=== PATIENT | female | born 1990 | race Caucasian/White ===

== ENCOUNTER → 2016-06-23 | Outpatient (CLI) | payer OTHER ==
[~2016-06-23] MED LIST: FERR50TA3 PO; PRENTAB26 PO
[2016-06-23 12:13] LABS: HEMATOCRIT 28.8 % (37-47)
[2016-06-23 12:44] LABS: URINE APPEARANCE CLEAR (CLEAR); URINE BILIRUBIN NEG (NEG); URINE COLOR YELLOW; URINE EPITHELIAL CELL AUTO >30 /lpf (0-5); URINE NITRITE NEG (NEG); URINE SPECIFIC GRAVITY 1.004 (1.000-1.030); UROBILINOGEN NEG (NEG)
[2016-06-23 12:51] LABS: MANUAL MICROSCOPIC REQUIRED? NO; REVIEW REQ? NO
[2016-06-23 13:05] LABS: GTGD 50 Grams
== END | disposition home or self-care (01) ==
LOC: C.LAB1850 10:30
PROVIDERS: ATTEND Obstetrics & Gynecology
DX: Z34.03 Encounter for supervision of normal first pregnancy, third trimester (principal)

== ENCOUNTER 2016-06-28 00:03 | Emergency (ER) | payer OTHER ==
[~2016-06-28] VITALS: Ht 172.7 cm; Wt 89.7 kg
[~2016-06-28 00:03] MED LIST changes: -FERR50TA3 PO
[2016-06-28 00:11] VITALS: TEMP 36.8; Ht 172.7 cm; Wt 89.7 kg
[2016-06-28] MEDS ORDERED: SODIUM CHLORIDE 0.9% 1000ML 1,000 ML IV STA ×2 (00:50)
[2016-06-28 00:51] LABS: HEMATOCRIT 28.4 % (37-47); MEAN CELL VOLUME 81.1 fL (80-100); MEAN CORPUSCULAR HEMOGLOBIN 27.4 pg (25-34); MEAN CORPUSCULAR HGB CONC 33.8 g/dl (32-36); MEAN PLATELET VOLUME 8.7 fL (7.4-10.4); PLATELET COUNT 205 K/uL (130-400); WHITE BLOOD COUNT 9.65 K/uL (4.8-10.8)
[2016-06-28 00:52] LABS: URINE APPEARANCE CLEAR (CLEAR); URINE BILIRUBIN NEG (NEG); URINE COLOR YELLOW; URINE NITRITE NEG (NEG); URINE PH 6.5 (4.5-7.5); URINE SPECIFIC GRAVITY 1.006 (1.000-1.030); UROBILINOGEN NEG (NEG); ZZUR CULT IF INDIC CLEAN CATCH NO
[2016-06-28 01:03] LABS: MANUAL MICROSCOPIC REQUIRED? NO; REVIEW REQ? NO
[2016-06-28 01:08] LABS: ALT/SGPT 25 U/L (12-78); AST/SGOT 14 U/L (15-37); BLOOD UREA NITROGEN 5 mg/dl (7-18); CALCIUM 8.5 mg/dl (8.5-10.1); CARBON DIOXIDE 22 mmol/L (21-32); CHLORIDE 105 mmol/L (98-107); CREATININE 0.43 mg/dl (0.60-1.20); GLUCOSE 83 mg/dl (70-99); POTASSIUM 3.6 mmol/L (3.5-5.1); SODIUM 139 mmol/L (136-145)
[2016-06-28 01:11] LABS: ALKALINE PHOSPHATASE 93 U/L (45-117)
[2016-06-28 01:19] LABS: BASO % 0.1 %; BASO ABS # 0.01 K/uL (0-0.2); COMPLETE YES; EOS % 0.3 %; IG% 0.3 %; LYMPH % 22.1 %; LYMPH ABS # 2.13 K/uL (1.2-3.4); MONO % 5.8 %; NEUT % 71.4 %
--- NOTE | 2016-06-28 02:01 | EMERGENCY ROOM VISIT NOTE ---
History First contact with patient: 00:07 Chief Complaint: FLANK PAIN Stated Complaint: RT SIDE FLANK/ABD PAIN - 29 WKS History of Present Illness The patient is a 26 year old female who presents to the Emergency Room with complaints of right-sided pain for the past 3 days described as aching, ranging in severity 5 out of 10. Nothing makes it better or worse. It does not radiate. Patient denies chest pain, dyspnea, fever, chills, nausea, vomiting, diarrhea, urinary symptoms, vaginal itching or discharge. Patient is 29 weeks . This is her third . She has no living children. She has had 2 spontaneous abortions. She follows with [facility]. She called them and was advised to go the ER. No tobacco, alcohol or drug use. No injury to the area. She woke up in the morning with pain there. She denies sleeping wrong. Patient states the pain is constant. No contractions. Review of Systems See HPI for pertinent positives & negatives. A total of 10 systems reviewed and were otherwise negative. Past Medical/Surgical History Medical Problems: (1) No pertinent past medical history Surgical Problems: (1) No pertinent past surgical history Family History No significant family history Social History Smoking Status: Never Smoker Smokeless Tobacco Use: No Alcohol Use: none Drug Use: none Marital Status: in relationship Housing Status: lives with significant other Occupation Status: employed Current/Historical Medications Scheduled Multivit/Min/Iron/Fol Ac/Pren ( Vitamin), 1 TAB PO DAILY Allergies Coded Allergies: No Known Allergies (Unverified , 06/28/16) Physical Exam Vital Signs Date Time Temp Pulse Resp B/P Pulse Ox O2 Delivery O2 Flow Rate FiO2 06/28/16 01:28 92 18 128/83 98 Room Air 06/28/16 00:11 36.8 89 16 139/83 97 Room Air Physical Exam VITALS: Vitals are noted on the nurse's note and reviewed by myself. Vital signs stable. GENERAL: Pleasant female, in no acute distress, nondiaphoretic, well-developed well-nourished. SKIN: The skin was without rashes, erythema, edema, or bruising. There is no tenting of the skin. Capillary reflex less than 2 seconds. HEAD: Normocephalic atraumatic. EARS: External auditory canals clear, tympanic membranes pearly wright without erythema or effusion bilaterally. EYES: Pupils equal round and reactive to light and accommodation. Conjunctivae without injection, sclerae without icterus. Extraocular movements intact. NOSE: Patent, turbinates without inflammation or discharge. MOUTH: Mucous membranes moist. Pharynx without erythema or exudate. Uvula midline. Airway patent. Tongue does not deviate. NECK: Supple without nuchal rigidity. No lymphadenopathy. No thyromegaly. Cervical spine is nontender. No JVD. HEART: Regular rate and rhythm without murmurs gallops or rubs. LUNGS: Clear to auscultation bilaterally without wheezes, rales or rhonchi. No dullness to percussion. No retractions or accessory muscle use. ABDOMEN: Positive bowel sounds x 4. Normal tympanic percussion. Soft, minimally tender to palpation right lateral abdomen who is 29 weeks , no CVA tenderness, without masses or organomegaly. Garcia sign negative. No guarding or rebound tenderness. MUSCULOSKELETAL: No muscle atrophy, erythema, or edema noted. NEURO: Patient was alert and oriented to person place and time. Normal sensation to light and sharp touch. No focal neurological deficits. Medical Decision & Procedures Laboratory Results 06/28/16 00:40 Red Blood Count 3.50, Mean Corpuscular Volume 81.1, Mean Corpuscular Hemoglobin 27.4, Mean Corpuscular Hemoglobin Concent 33.8, Mean Platelet Volume 8.7, Neutrophils (%) (Auto) 71.4, Lymphocytes (%) (Auto) 22.1, Monocytes (%) (Auto) 5.8, Eosinophils (%) (Auto) 0.3, Basophils (%) (Auto) 0.1, Neutrophils # (Auto) 6.89, Lymphocytes # (Auto) 2.13, Monocytes # (Auto) 0.56, Eosinophils # (Auto) 0.03, Basophils # (Auto) 0.01 06/28/16 00:40 Test 06/28/16 00:40 White Blood Count 9.65 K/uL (4.8-10.8) Red Blood Count 3.50 M/uL (4.2-5.4) Hemoglobin 9.6 g/dL (12.0-16.0) Hematocrit 28.4 % (37-47) Mean Corpuscular Volume 81.1 fL (80-100) Mean Corpuscular Hemoglobin 27.4 pg (25-34) Mean Corpuscular Hemoglobin Concent 33.8 g/dl (32-36) Platelet Count 205 K/uL (130-400) Mean Platelet Volume 8.7 fL (7.4-10.4) Neutrophils (%) (Auto) 71.4 % Lymphocytes (%) (Auto) 22.1 % Monocytes (%) (Auto) 5.8 % Eosinophils (%) (Auto) 0.3 % Basophils (%) (Auto) 0.1 % Neutrophils # (Auto) 6.89 K/uL (1.4-6.5) Lymphocytes # (Auto) 2.13 K/uL (1.2-3.4) Monocytes # (Auto) 0.56 K/uL (0.11-0.59) Eosinophils # (Auto) 0.03 K/uL (0-0.5) Basophils # (Auto) 0.01 K/uL (0-0.2) RDW Standard Deviation 35.9 fL (36.4-46.3) RDW Coefficient of Variation 12.2 % (11.5-14.5) Immature Granulocyte % (Auto) 0.3 % Immature Granulocyte # (Auto) 0.03 K/uL (0.00-0.02) Urine Color YELLOW Urine Appearance CLEAR (CLEAR) Urine pH 6.5 (4.5-7.5) Urine Specific [place] 1.006 (1.000-1.030) Urine Protein NEG (NEG) Urine Glucose (UA) NEG (NEG) Urine Ketones NEG (NEG) Urine Occult Blood NEG (NEG) Urine Nitrite NEG (NEG) Urine Bilirubin NEG (NEG) Urine Urobilinogen NEG (NEG) Urine Leukocyte Esterase NEG (NEG) Anion Gap 12.0 mmol/L (3-11) Est Creatinine Clear Calc Drug Dose 230.2 ml/min Estimated GFR () > 150.0 Estimated GFR (Non- 139.4 BUN/Creatinine Ratio 11.0 (10-20) Calcium Level 8.5 mg/dl (8.5-10.1) Total Bilirubin 0.4 mg/dl (0.2-1) Direct Bilirubin < 0.1 mg/dl (0-0.2) Aspartate Amino Transf (AST/SGOT) 14 U/L (15-37) Alanine Aminotransferase (ALT/SGPT) 25 U/L (12-78) Alkaline Phosphatase 93 U/L (45-117) Total Protein 6.8 gm/dl (6.4-8.2) Albumin 3.0 gm/dl (3.4-5.0) Lipase 118 U/L (73-393) Medications Administered Medications (Trade) Dose Ordered Sig/Primitivo Route Start Time Stop Time Status Last Admin Dose Admin Sodium Chloride (Nss 1000ml) 1,000 ml @ 999 mls/hr Q1H1M STAT IV 06/28/16 00:50 06/28/16 01:50 DC 06/28/16 01:23 999 MLS/HR ED Course Prior records/ancillary studies reviewed. Triage Nursing notes reviewed. The patient's history was concerning for abdominal pain. Differential diagnosis: Etiologies such as pain, muscle pain, complications of , labor, contractions, appendicitis, diverticulitis, PUD, biliary pathology, UTI, pancreatitis, obstruction, mesenteric ischemia, aortic pathology, infections, inflammatory bowel disease, renal colic, as well as others were entertained. Physical examination findings: As above. ER treatment provided: IV fluids On reassessment the patient felt better. Diagnostics interpreted by me: heart tones 168 The labs revealed no leukocytosis. No worrisome electrolyte abnormality. Negative urine stable H & H per chart review Imaging studies: US RUQ: Mild hydronephrosis of the right kidney. Urinary bladder decompressed, ureteral jets not visualized on this exam. No gallstones, wall thickening or pericholecystic fluid. No biliary dilatation. No free fluid. Negative sonographic Garcia sign. Liver and visualized portion of the pancreas within normal limits. Radiologist: Robbie Szymanski M.D. Consultation: A consultation was placed with the realty specialist, Dr. Noble. The case was discussed and diagnostics were reviewed. She recommends discharge and follow-up in clinic in a day or 2. Exam and history seem consistent with right-sided pain most likely related to . Patient did not have an acute abdomen on exam. She is tolerating fluids and food. No urine infection. No acute findings on ultrasound. She is advised to follow-up tomorrow or within 24 hours with OB or here in the ER sooner for increasing pain, fevers, drainage, vomiting, worsening signs or symptoms or as needed. By the evaluation outlined above emergent etiologies such as appendicitis, diverticulitis, PUD, biliary pathology, UTI, pancreatitis, obstruction, mesenteric ischemia, aortic pathology, infections, inflammatory bowel disease, renal colic, as well as others were deemed relatively unlikely. The pt informed about the findings as listed above. All questions were answered and pleased with the treatment. Return instructions were outlined and the patient was discharged in stable condition. Referral: The patient was referred back to their INSURANCE FOLLOW UP SPECIALIST within 24 hours for a recheck of the current condition. Case reviewed by attending. Medical Decision As above Impression Primary Impression: Right sided abdominal pain Departure Information Dispostion Home / Self-Care Condition GOOD Referrals Meño Masters M.D. (PCP) Patient Instructions My [facility] Additional Instructions Acetaminophen(Tylenol) may be used for fever or pain. Use 1000mg every six hours as needed. Avoid using more than 3000mg in a 24 hour period. Rest and drink plenty of fluids as tolerated. Slow sips of water or sports drinks are recommended instead of large amounts all at once. Continue current medications. Return to the ER immediately for worsening or persistent abdominal pain, contractions, vomiting, fevers, chest pains, difficulty breathing, black or bloody stools, worsening of your condition, or as needed. Follow up with your INSURANCE FOLLOW UP SPECIALIST in 24 hours for a recheck of your current condition.
[2016-06-28 02:09] VITALS: BP 121/86; PULSE 81; O2SAT 99
--- NOTE | 2016-06-28 06:51 | DIAGNOSTIC IMAGING REPORT ---
BILIARY ULTRASOUND CLINICAL HISTORY: Right-sided abdominal pain COMPARISON STUDY: No previous studies for comparison. FINDINGS: The pancreas appear normal as visualized. The liver appears normal. The gallbladder appears sonographically normal. There is no ductal dilatation. The common bile duct measured 3 mm. There is right-sided hydronephrosis. Images of the bladder revealed a decompressed bladder. There is a gravid uterus. IMPRESSION: 1. Ultrasonographically normal liver gallbladder and pancreas 2. Mild right-sided hydronephrosis Electronically signed by: Yassine Ramos M.D. 06/28/2016 6:49 AM Dictated Date/Time: 06/28/2016 6:47 AM
== END 2016-06-28 02:13 | disposition home or self-care (01) ==
LOC: C.EDB 00:05 → C.EDA 02:13
DX: O99.89 Other specified diseases and conditions complicating pregnancy, childbirth and the puerperium (principal); R10.9 Unspecified abdominal pain; Z3A.29 29 weeks gestation of pregnancy

== ENCOUNTER → 2016-07-06 | Outpatient (CLI) | payer OTHER ==
[~2016-07-06] MED LIST changes: +FERR50TA3 PO
== END | disposition home or self-care (01) ==
LOC: C.LAB1850 07:18
PROVIDERS: ATTEND Obstetrics & Gynecology
DX: O28.1 Abnormal biochemical finding on antenatal screening of mother (principal)

== ENCOUNTER → 2016-07-21 | Outpatient (CLI) | payer OTHER ==
[2016-07-21 18:00] LABS: HEMATOCRIT 30.4 % (37-47)
== END | disposition home or self-care (01) ==
LOC: C.LAB1850 17:19
PROVIDERS: ATTEND Obstetrics & Gynecology
DX: O99.019 Anemia complicating pregnancy, unspecified trimester (principal); Z3A.00 Weeks of gestation of pregnancy not specified; D64.9 Anemia, unspecified

== ENCOUNTER → 2016-08-10 | Outpatient (CLI) | payer OTHER ==
[2016-08-10 10:53] LABS: HEMATOCRIT 29.2 % (37-47)
== END | disposition home or self-care (01) ==
LOC: C.LAB1850 09:49
PROVIDERS: ATTEND Obstetrics & Gynecology
DX: O99.019 Anemia complicating pregnancy, unspecified trimester (principal)

== ENCOUNTER 2016-08-18 11:26 | Emergency (ER) | payer OTHER ==
[~2016-08-18] VITALS: Ht 172.7 cm; Wt 90.0 kg
[~2016-08-18 11:26] MED LIST changes: -FERR50TA3 PO
[2016-08-18 11:37] VITALS: TEMP 37.2; Ht 172.7 cm; Wt 90.0 kg
[2016-08-18] MEDS ORDERED: ACETAMINOPHEN 500 MG TAB PO STA (12:26)
--- NOTE | 2016-08-18 12:57 | DIAGNOSTIC IMAGING REPORT ---
RIGHT ANKLE MIN 3 VIEWS ROUTINE CLINICAL HISTORY: R ankle/foot pain Right trauma. Pain. COMPARISON: None. DISCUSSION: The bones and joint spaces appear intact. There is no evidence of fracture, dislocation or bony disease. There is no evidence for soft tissue swelling. IMPRESSION: Negative study. Electronically signed by: Meño Pettit M.D. 08/18/2016 12:56 PM Dictated Date/Time: 08/18/2016 12:56 PM
--- NOTE | 2016-08-18 12:58 | DIAGNOSTIC IMAGING REPORT ---
RIGHT FOOT MIN 3 VIEWS ROUTINE CLINICAL HISTORY: R ankle/foot pain Right trauma. Pain. COMPARISON: None. DISCUSSION: The bones and joint spaces appear intact. There is no evidence of fracture, dislocation or bony disease. There is no evidence for soft tissue swelling. IMPRESSION: Negative study. Electronically signed by: Meño Pettit M.D. 08/18/2016 12:57 PM Dictated Date/Time: 08/18/2016 12:56 PM
--- NOTE | 2016-08-18 13:14 | DIAGNOSTIC IMAGING REPORT ---
RIGHT RIBS UNILATERAL WITH PA CHEST CLINICAL HISTORY: R rib pain Right trauma. Pain. COMPARISON STUDY: None FINDINGS: Negative right ribs. Negative chest. IMPRESSION: Negative right ribs and chest Electronically signed by: Meño Pettit M.D. 08/18/2016 1:12 PM Dictated Date/Time: 08/18/2016 1:11 PM
[2016-08-18] MEDS ORDERED: FERR50TA3 PO (13:51)
[2016-08-18 14:46] VITALS: BP 129/83; PULSE 92; O2SAT 96
--- NOTE | 2016-08-18 19:17 | EMERGENCY ROOM VISIT NOTE ---
History First contact with patient: 12:19 Chief Complaint: FALL Stated Complaint: FELL DOWN STAIRS, 37 WKS PREG R ANKLE/FOOT,RIB SVETLANA History of Present Illness The patient is a 26 year old, 37 weeks gravid female, who presents to the Emergency Room with complaints of injuries after falling down approximately 8 steps at home. The patient reports that as she was starting to descend steps, her cat got in front of her and tripped her. She felt like she was going to fall face first. She immediately grabbed the banister and poor herself backward , landing on her right ribs. The patient also reports twisting her right ankle and foot. The patient then generally slid down the steps. She denies any head injury, back pain, chest pain or shortness of breath. She also denies any abdominal pain or vaginal bleeding. She rates her discomfort a 5 out of 10. Review of Systems 10 system review was performed and was negative except for pertinent positives and negatives as indicated in history of present illness Past Medical/Surgical History Medical Problems: (1) 37 weeks gestation of (2) Fall (3) No pertinent past medical history Surgical Problems: (1) No pertinent past surgical history Family History FH: cancer No significant family history Social History Smoking Status: Never Smoker Alcohol Use: none Drug Use: none Marital Status: in relationship Housing Status: lives with significant other Occupation Status: employed Current/Historical Medications Scheduled Ferrous Sulfate (Iron (Ferrous Sulfate)), 1 TAB PO DAILY Multivit/Min/Iron/Fol Ac/Pren ( Vitamin), 1 TAB PO DAILY Allergies Coded Allergies: No Known Allergies (Unverified , 08/18/16) Physical Exam Vital Signs Date Time Temp Pulse Resp B/P Pulse Ox O2 Delivery O2 Flow Rate FiO2 08/18/16 14:46 92 16 129/83 96 08/18/16 13:14 94 18 115/86 97 Room Air 08/18/16 11:37 37.2 91 18 129/88 99 Room Air Physical Exam CONSTITUTIONAL: Healthy and well nourished. Alert and oriented X 3 with positive affect. Patient does not appear in any acute distress. HEENT: Normocephalic, atraumatic. Pupils equal, round and reactive. No hemotympanum, epistaxis, subconjunctival hemorrhage, raccoon's eyes or Gallegos sign. OROPHARYNX: No dental trauma noted. NECK: Full active range of motion without discomfort. RESPIRATORY: Clear to auscultation bilaterally with no wheezing, crackles, rhonchi or stridor. CARDIOVASCULAR: Regular rate and rhythm with no murmurs, rubs or gallops. GASTROINTESTINAL: Bowel sounds present in all quadrants. She has no tenderness to palpation of the abdomen. Prominence is noted with history of intrauterine . MUSCULOSKELETAL: Examination shows generalized tenderness to palpation of the right lower ribs. No ecchymosis, subcutaneous emphysema or flail segment. Deep breathing worsens her discomfort. Examination of the right ankle shows diffuse edema without obvious deformity or skin wounds. Negative anterior draw. She has generalized tenderness to palpation over the dorsal midfoot, lateral and medial ankle. Pedal pulses are intact. Remaining musculoskeletal exam was performed and was normal. INTEGUMENTARY: No rash or other significant dermatologic conditions noted. NEUROLOGIC: Extremities are sensory intact. Medical Decision & Procedures ER Provider Diagnostic Interpretation: My interpretation of right rib x-rays with a PA chest does not show any obvious fractures or pneumothorax. My interpretation of right ankle and foot x-rays also does not show any acute fractures, ankle mortise asymmetry or dislocation. Radiologist reports were reviewed with concurrence. Medications Administered Medications (Trade) Dose Ordered Sig/Primitivo Route Start Time Stop Time Status Last Admin Dose Admin Acetaminophen (Tylenol Tab) 1,000 mg NOW STAT PO 08/18/16 12:26 08/18/16 12:29 DC 08/18/16 13:10 1,000 MG ED Course Patient history and physical exam were performed. Nurse's notes were reviewed. Vital signs were reviewed and were normal. The patient denied any abdominal pain. heart rate was 146. X-rays of the right ribs with PA chest were normal. X-rays of the right ankle and foot were also normal. The patient was administered Tylenol 1 g while in the emergency department for pain. The patient reports that she does have crutches at home from a previous injury. She was encouraged to intermittently apply ice to areas of discomfort. Range of motion exercises of the ankle to prevent stiffness. Tylenol as needed for pain. Return to the emergency department for any developing abdominal pain or vaginal bleeding. Otherwise, she was instructed to follow-up with her PCP for management of her injuries as needed. Follow-up with CHART COLLECTOR for any concerns. Patient was discharged and sent to the Labor and Delivery department for further monitoring. Medical Decision Impression Primary Impression: Contusion of rib on right side Additional Impressions: Right ankle sprain Right foot strain Fall down steps Third trimester Departure Information Dispostion Home / Self-Care Forms HOME CARE DOCUMENTATION FORM, IMPORTANT VISIT INFORMATION Patient Instructions My [facility] [place] [facility] Additional Instructions Intermittently apply ice to ribs, ankle and foot. Use your home crutches as needed to avoid limping. Perform range of motion exercises of the ankle to prevent stiffness. Tylenol 1000 mg every 6-8 hours as needed for pain. Return to the emergency department for any developing abdominal pain or vaginal bleeding. Problem Qualifiers Primary Impression: Contusion of rib on right side Encounter type: initial encounter Qualified Codes: S20.211A - Contusion of right front wall of thorax, initial encounter Additional Impressions: Right ankle sprain Encounter type: initial encounter Involved ligament of ankle: unspecified ligament Qualified Codes: S93.401A - Sprain of unspecified ligament of right ankle, initial encounter Right foot strain Encounter type: initial encounter Qualified Codes: S96.911A - Strain of unspecified muscle and tendon at ankle and foot level, right foot, initial encounter Fall down steps Encounter type: initial encounter Qualified Codes: W10.8XXA - Fall (on) ( from) other stairs and steps, initial encounter
== END 2016-08-18 14:47 | disposition home or self-care (01) ==
LOC: C.EDB 11:29 → C.EDC 14:47
DX: O9A.213 Injury, poisoning and certain other consequences of external causes complicating pregnancy, third trimester (principal); S20.211A Contusion of right front wall of thorax, initial encounter; S93.401A Sprain of unspecified ligament of right ankle, initial encounter; S93.601A Unspecified sprain of right foot, initial encounter; W10.8XXA Fall (on) (from) other stairs and steps, initial encounter; Y92.019 Unspecified place in single-family (private) house as the place of occurrence of the external cause; Z80.9 Family history of malignant neoplasm, unspecified

== ENCOUNTER 2016-08-18 14:56 | Outpatient (CLI) | payer OTHER ==
[~2016-08-18 14:56] MED LIST changes: +FERR50TA3 PO
== END 2016-08-18 15:35 | disposition home or self-care (01) ==
LOC: C.OPB 14:56 → C.LD 14:56 → C.OPB 15:35
PROVIDERS: ATTEND Obstetrics & Gynecology
DX: O99.89 Other specified diseases and conditions complicating pregnancy, childbirth and the puerperium (principal); W10.9XXA Fall (on) (from) unspecified stairs and steps, initial encounter; Z3A.37 37 weeks gestation of pregnancy

== ENCOUNTER → 2016-08-24 | Outpatient (CLI) | payer OTHER | END | disposition home or self-care (01) | LOC: C.LABSPEC 13:36 | PROVIDERS: ATTEND Obstetrics & Gynecology | DX: Z34.03 Encounter for supervision of normal first pregnancy, third trimester (principal) ==

== ENCOUNTER 2016-09-02 18:03 | Inpatient (IN) | payer OTHER ==
[~2016-09-02] VITALS: Ht 172.7 cm; Wt 95.0 kg
[2016-09-02] MEDS ORDERED: LACTATED RINGER'S 1000ML 1,000 ML IV PRN (18:37)
[2016-09-02 19:08] VITALS: Ht 172.7 cm; Wt 95.0 kg
[2016-09-02 19:26] LABS: HEMATOCRIT 31.5 % (37-47); MEAN CELL VOLUME 76.1 fL (80-100); MEAN CORPUSCULAR HEMOGLOBIN 23.4 pg (25-34); MEAN CORPUSCULAR HGB CONC 30.8 g/dl (32-36); MEAN PLATELET VOLUME 9.5 fL (7.4-10.4); PLATELET COUNT 246 K/uL (130-400); RED BLOOD COUNT 4.14 M/uL (4.2-5.4); WHITE BLOOD COUNT 12.43 K/uL (4.8-10.8)
[2016-09-02] MEDS: LACTATED RINGER'S 1000ML 1,000 ML IV SCH ×2 (20:23→23:38)
[2016-09-02] MEDS ORDERED: BUTORPHANOL TARTRATE 1 MG/ML VIAL ONE (20:27)
[2016-09-02] MEDS ORDERED: BUTORPHANOL TARTRATE 1 MG/ML VIAL IV PRN (20:30)
[2016-09-02] MEDS ORDERED: FENTANYL CITRATE INJ 50 MCG/1 ML 2 ML VIAL ONE (22:03)
[2016-09-02] MEDS ORDERED: BUPIVACAINE 0.25% 30 ML VIAL ONE (22:03)
[2016-09-02] MEDS ORDERED: EpHEDrine SULFATE INJ 50 MG/ML AMP ONE (22:03)
[2016-09-02] MEDS ORDERED: FENTANYL 2MCG/ML ROPIV 1.25MG/ML 100ML BAG EPI ONE (22:03)
[2016-09-02] MEDS ORDERED: NALOXONE HCL INJ 1 MG in SODIUM CHLORIDE 0.9% 1000ML 1,000 ML IV PRN (22:50)
[2016-09-02] MEDS ORDERED: LACTATED RINGER'S 1000ML 500 ML IV PRN (22:50)
[2016-09-02] MEDS ORDERED: ONDANSETRON INJ 2 MG/ML 2 ML VIAL IV PRN (23:00)
[2016-09-02] MEDS ORDERED: NALBUPHINE HCL INJ 10 MG/ML AMP IV PRN (23:00)
[2016-09-02] MEDS ORDERED: FENTANYL 2MCG/ML ROPIV 1.25MG/ML 100ML BAG EPI PRN (23:00)
[2016-09-02] MEDS ORDERED: EpHEDrine SULFATE INJ 50 MG/ML AMP IV PRN (23:00)
[2016-09-02] MEDS ORDERED: NALOXONE HCL INJ 0.4 MG/1 ML VIAL/CARP IV PRN (23:00)
[2016-09-02] MEDS ORDERED: DiphenhydrAMINE HCL 50 MG/ML VIAL IV PRN (23:00)
[2016-09-03] MEDS ORDERED: OXYTOCIN 30 UNITS/500ML NSS IV ONE (02:36)
[2016-09-03] MEDS ORDERED: OXYCODONE/ACETAMINOPHEN 5-325 TAB PO PRN (03:00)
[2016-09-03] MEDS ORDERED: OXYTOCIN 30 UNITS/500ML NSS IV PRN (03:00)
[2016-09-03] MEDS ORDERED: LANOLIN OINT EXT PRN ×2 (03:00)
[2016-09-03] MEDS ORDERED: ACETAMINOPHEN/CODEINE 300/30MG TAB PO PRN ×2 (03:00)
[2016-09-03] MEDS ORDERED: ACETAMINOPHEN 325 MG TAB PO PRN (03:00)
[2016-09-03] MEDS ORDERED: SUPERCREAM 0.870 % 15GM JAR EXT PRN (03:00)
[2016-09-03] MEDS ORDERED: HYDROCORTISONE ACETATE 25 MG SUPP PR PRN (03:00)
[2016-09-03] MEDS ORDERED: BENZOCAINE 20% AER SPR 82.5 GM CAN EXT PRN (03:00)
[2016-09-03] MEDS: IBUPROFEN 600 MG TAB PO PRN ×4 (03:31→17:21)
[2016-09-03 05:10] VITALS: BP 129/80; PULSE 85; TEMP 36.6
--- NOTE | 2016-09-03 07:16 | Progress Note ---
Subjective Sep 03, 2016. Subjective conversation w/ patient, physical exam, chart review Ambulation: ambulating normally Voiding: no voiding problems Diet Tolerance: Regular Diet Lochia: Moderate Objective Vital Signs Date Time Temp Pulse Resp B/P Pulse Ox O2 Delivery O2 Flow Rate FiO2 09/03/16 05:10 36.6 85 18 129/80 Room Air Physical Exam General Appearance: WELL-APPEARING Abdomen: non tender Fundus: Firm Extremities: no calf tenderness Laboratory Results Last 24 Hours Test 09/02/16 18:37 09/02/16 19:13 Amniotic Fluid Protein POS White Blood Count 12.43 K/uL Red Blood Count 4.14 M/uL Hemoglobin 9.7 g/dL Hematocrit 31.5 % Mean Corpuscular Volume 76.1 fL Mean Corpuscular Hemoglobin 23.4 pg Mean Corpuscular Hemoglobin Concent 30.8 g/dl RDW Standard Deviation 39.2 fL RDW Coefficient of Variation 13.9 % Platelet Count 246 K/uL Mean Platelet Volume 9.5 fL Assessment and Plan Problem List Medical Problems: (1) Contusion of rib on right side Status: Acute (2) Fall down steps Status: Acute (3) Knee pain Status: Acute (4) Right ankle sprain Status: Acute (5) Right foot strain Status: Acute (6) Right sided abdominal pain Status: Acute (7) Third trimester Status: Acute Post- Day#: 0 Continue Routine Care: ccc
[2016-09-03] MEDS: DOCUSATE SODIUM 100 MG CAP PO SCH ×2 (08:07→19:38)
[2016-09-03] MEDS: PRENATAL VITAMIN TAB PO SCH (08:07)
[2016-09-03 08:20] VITALS: BP 125/79; PULSE 86; TEMP 36.8
--- NOTE | 2016-09-03 12:07 | DELIVERY SUMMARY ---
DATE OF OPERATION: 09/02/2016 Nikole arrived on the evening of 09/02/2016 in active labor. She initially was 3-4 cm, progressed to 5 cm, requested epidural. heart rate was category 1. Membranes then ruptured spontaneously. The patient pushed for approximately 40 minutes and then delivered a baby over occiput anterior position. There was a loose nuchal cord that was passed over the head. Fluid was clear. Mouth and the nares were suctioned. Baby was delivered with gentle traction. No excessive force was used. Live vigorous infant, cord clamped and cut. Cord gases obtained. Cord blood obtained. Placenta removed with gentle traction, second degree tear repaired with 3-0 Vicryl. Sponge and instrument counts were correct and estimated blood loss was 215 mL. I attest to the content of the Intraoperative Record and any orders documented therein. Any exceptio ns are noted below.
[2016-09-03 12:30] VITALS: BP 116/77; PULSE 81; TEMP 36
[2016-09-03 15:10] VITALS: BP 119/82; PULSE 97; TEMP 36.6
[2016-09-03 19:45] VITALS: BP 125/89; PULSE 95; TEMP 36.9
[2016-09-04] MEDS: IBUPROFEN 600 MG TAB PO PRN ×3 (00:08→16:39)
[2016-09-04 00:10] VITALS: BP 125/92; PULSE 85; TEMP 36.5; O2SAT 99
[2016-09-04 07:29] LABS: HEMATOCRIT 28.4 % (37-47)
[2016-09-04 07:30] VITALS: BP 121/77; PULSE 82; TEMP 36.9
--- NOTE | 2016-09-04 07:48 | Progress Note ---
Subjective Sep 04, 2016. Subjective conversation w/ patient, physical exam Ambulation: ambulating normally Voiding: no voiding problems Diet Tolerance: Regular Diet Lochia: Small Feeding Type: Breast Feeding Pain: no pain issues. Objective Vital Signs Date Time Temp Pulse Resp B/P Pulse Ox O2 Delivery O2 Flow Rate FiO2 09/04/16 00:10 Room Air 09/04/16 00:10 36.5 85 18 125/92 99 Room Air 09/03/16 19:45 36.9 95 18 125/89 Room Air 09/03/16 15:10 36.6 97 18 119/82 Room Air 09/03/16 15:10 Room Air 09/03/16 12:30 36.0 81 18 116/77 Room Air 09/03/16 08:20 36.8 86 20 125/79 Room Air 09/03/16 08:20 Room Air Physical Exam General Appearance: WELL-APPEARING, NO APPARENT DISTRESS Respiratory/Chest: lungs clear Cardiovascular: regular rate, rhythm Abdomen: non tender, soft Fundus: Firm, Relation to Umbilicus (2 down) Extremities: non-tender Laboratory Results Last 24 Hours Test 09/04/16 06:31 Hemoglobin 8.5 g/dL Hematocrit 28.4 % Assessment and Plan Problem List Medical Problems: (1) Contusion of rib on right side Status: Acute (2) Fall down steps Status: Acute (3) Knee pain Status: Acute (4) Right ankle sprain Status: Acute (5) Right foot strain Status: Acute (6) Right sided abdominal pain Status: Acute (7) Third trimester Status: Acute Post- Day#: 1 Continue Routine Care: stable, routine care.
[2016-09-04] MEDS: DOCUSATE SODIUM 100 MG CAP PO SCH (08:25)
[2016-09-04] MEDS: PRENATAL VITAMIN TAB PO SCH (08:25)
--- NOTE | 2016-09-04 14:11 | Discharge Instructions ---
Discharge Instructions Date of Service Sep 04, 2016. Admission Reason for Admission: Check Labor Discharge Discharge Diagnosis / Problem: after delivery Discharge Goals Goal(s): Routine recovery after delivery Medications Continue Dispensed Medications: supercream, dermaplast, tucks, lansinoh Activity Recommendations Activity Limitations: as noted below . Instructions / Follow-Up Instructions / Follow-Up ACTIVITY RECOMMENDATIONS: * Gradual return to full activity over the next 2-3 weeks. * No lifting - nothing heavier than baby over the next 2-3 weeks. * Do not engage in vigorous exercise, sexual activity or sports until cleared by your physician. * Do not drive or operate any motorized equipment until cleared by your physician. * You may shower/bathe daily. MEDICATIONS: For discomfort or pain, you may use Acetaminophen (Tylenol), Ibuprofen (Advil), or Naproxen (Aleve) following the package directions. For constipation you may use Colace following the package directions. Take the iron as noted for next 6wks. BREAST CARE: If you are not breast feeding: * Wear a supportive bra 24 hours a day for one to two weeks. * Avoid stimulating your breasts and nipples as much as possible during the first few weeks after delivery. * When taking a shower, have the warm water hit your back, not breasts. * When your breasts feel full, apply ice packs. Usually three to four times a day helps ease the discomfort. * Take a mild pain medication (Tylenol / Motrin) when you are uncomfortable. If breast feeding: * Use breast milk to lubricate nipples. Lansinoh cream may be used for sore nipples. You do not need to remove cream prior to breast feeding. If using a different brand of cream, check the label for directions regarding removal of cream prior to nursing. * Wear a supportive bra. * If having problems with breasts or breast feeding, call a interventional sale consultant or your health care provider. EPISIOTOMY CARE: After delivery, if you have an episiotomy (stitches), the following steps will ease discomfort and aid healing. * For the first 24 hours after delivery, place ice packs next to your episiotomy to help reduce swelling. * After the first 24 hour-period, sitz baths, either portable or in the tub, are suggested. A shower with a shower arm sprayed over the episiotomy may be comforting. * [place] care should be done after each voiding and bowel movement. Squirt warm water from a plastic bottle over the perineum (region of the body between the anus and urinary opening) and pat dry. * Use Dermoplast to ease discomfort. Shake container. Trimble directly over the episiotomy. Place a Tucks on a clean sanitary pad next to your episiotomy. SPECIAL CARE INSTRUCTIONS: When you are discharged from the hospital, it is important for you to follow the instructions listed below: * During the first week at home, you should be able to care for yourself and your baby. In addition, the usual light household activities are encouraged. * Limit your activities to the way you feel. Do not try to clean the house or move furniture. Be sensible. * If you actively engage in sports and have done so up until the time of your delivery, you may resume these activities as soon as you feel able. This may take up to one month or even longer. Use good judgment. * Continue to take your vitamins for at least six weeks after the of your baby. * Your diet need not be limited unless you were on a special diet before your delivery. Breast-feeding mothers need around 2500 calories per day and at least 64-80 ounces of fluid per day (8 to 10 glasses). * You should eat foods from the four major food groups. Crash diets or fad diets are to be avoided. Eating lean meats, fresh fruits and vegetables, low-fat dairy products, high fiber foods and a regular exercise program, will help you get back to your pre- weight without putting your health at risk. * Constipation is sometimes a problem after delivery. Take a mild laxative as needed. If breast feeding, Milk of Magnesia is acceptable to use. You may use a suppository or Fleets enema if no episiotomy. * A daily shower or tub bath is suggested. Be sure to thoroughly and gently dry the perineum. * A bloody vaginal discharge will usually continue until around four weeks post . A small amount of bleeding may continue for as long as six weeks. Vaginal discharge changes from the bright red bleeding after delivery to pink then brownish and finally yellowish-pink before becoming white and disappearing. * Bleeding may increase with activity. Your first period may come in 4-8 weeks. If you are breast feeding, your period may be delayed even longer. * [place] (sex) can begin whenever both you and your partner feel comfortable and do not have any form of genital infection. It is recommended that you wait at least six weeks for internal and external healing to occur. If you have questions, please talk to your health care practitioner. A condom should be used to prevent infection and . * Foreplay, gentle intercourse and lubrication is very important the first several times to prevent pain. A water-based lubricant such as K-Y jelly or Astroglide may be used. * If you have RH negative blood and your baby is RH positive, you will receive RHOGAM by injection prior to discharge. The nurse will give you a card to keep with you that has the date and place that you received RHOGAM after delivery. * During your care, you had a Rubella screen done to check for the presence of rubella antibodies in your blood. If your test was negative, you will receive a Rubella vaccine prior to discharge. This vaccine may cause a fever, soreness at the injection site and flu-like symptoms. If these symptoms persist, notify your health care practitioner. is not advised for one month after a Rubella vaccine. * Verbalizes understanding of car seat law as reviewed with patient nursing. * Car Seat hand-out given and reviewed with patient by nursing. * Shaken baby information reviewed with patient by nursing. Call you doctor if: * Heavy bleeding (saturating several pads an hour) or passing clots the size of your fist. * A fever >101 degrees F (38.3 degrees C) on two occasions four hours apart and /or chills. * Unusual pain in the pelvic or vaginal areas. * "Baby Blues" lasting longer than two weeks. If you have any questions or concerns, call your health care practitioner at . FOLLOW UP VISIT: * Please call the office at to schedule a 6 week examination. It is important you keep this appointment. It is important for you to make arrangements for either yearly or twice yearly check-ups thereafter. Current Hospital Diet Patient's current hospital diet: Regular OB Diet Discharge Diet Recommended Diet: Regular Diet Pending Studies Studies pending at discharge: no Medical Emergencies . Who to Call and When: Medical Emergencies: If at any time you feel your situation is an emergency, please call 911 immediately. . Non-Emergent Contact Non-Emergency issues call your: Heater Planer Operator . . "Provider Documentation" section prepared by Marie Shepherd. VTE Core Measure Inpt VTE Proph given/why not?: Treatment not indicated
[2016-09-04 16:30] VITALS: BP 111/77; PULSE 92; TEMP 37.1
[2016-09-04 19:55] VITALS: BP_DIAS 77; PULSE 92; TEMP 37.1
[2016-09-04] MEDS ORDERED: BISACODYL 5 MG TABEC PO SCH (20:00)
[2016-09-05] MEDS ORDERED: BISACODYL 10 MG SUPP PR PRN (07:00)
== END 2016-09-04 20:00 | disposition home or self-care (01) | DRG 775 ==
LOC: C.OPB 18:03 → C.LD 18:03 → C.OPB 18:48 → C.OBG 09-03 05:22
PROVIDERS: ADMIT Obstetrics & Gynecology; ATTEND Obstetrics & Gynecology
PROC: 0KQM0ZZ Repair Perineum Muscle, Open Approach (ICD-10-PCS; principal; 2016-09-02)
PROC: 10E0XZZ Delivery of Products of Conception, External Approach (ICD-10-PCS; principal; 2016-09-02)
DX: O70.1 Second degree perineal laceration during delivery (principal); Z37.0 Single live birth

== ENCOUNTER 2016-12-22 03:31 | Emergency (ER) | payer OTHER ==
[~2016-12-22] VITALS: Ht 175.3 cm; Wt 82.6 kg
[2016-12-22 03:35] VITALS: BP 132/64; PULSE 91; TEMP 37; O2SAT 97; Ht 175.3 cm; Wt 82.6 kg
[2016-12-22] MEDS ORDERED: KETOROLAC TROMETHAMINE 60 MG/2 ML VIAL IM STA (03:47)
--- NOTE | 2016-12-22 03:47 | EMERGENCY ROOM VISIT NOTE ---
History Report prepared by Jin: Tina Deutsch Under the Supervision of: Dr. Bozena Saleh D.O. First contact with patient: 03:39 Chief Complaint: THROAT PAIN/INJURY Stated Complaint: SORETHROAT, COLD CHILLS, RUNNY NOSE History of Present Illness The patient is a 26 year old female who presents to the Emergency Room with complaints of a worsening throat pain beginning a few hours prior to arrival. The patient states that yesterday she began to feel chilled and then the symptoms of a sore throat and chills began. She notes she has not been around sick people. The patient has a history of strep throat and has been told she needs to have her tonsils removed. She notes her symptoms are similar to how strep throat has begun in the past for her. Source of History: patient Onset: few hours TIMBER HAND Position: throat Quality: other (pain) Timing: worsening Associated Symptoms: + chills, + sorethroat Note: The patient denies exposure to illness. Review of Systems See HPI for pertinent positives & negatives. A total of 10 systems reviewed and were otherwise negative. Past Medical & Surgical Medical Problems: (1) 37 weeks gestation of (2) Fall (3) No pertinent past medical history Surgical Problems: (1) No pertinent past surgical history Family History FH: cancer No significant family history Social History Smoking Status: Never Smoker Alcohol Use: none Drug Use: none Marital Status: in relationship Housing Status: lives with significant other Occupation Status: employed Current/Historical Medications No Active Prescriptions or Reported Meds Allergies Coded Allergies: No Known Allergies (Unverified , 12/22/16) Physical Exam Vital Signs Date Time Temp Pulse Resp B/P (MAP) Pulse Ox O2 Delivery O2 Flow Rate FiO2 12/22/16 03:35 Room Air 12/22/16 03:35 37.0 91 18 132/64 97 Room Air Physical Exam HEENT: Head - normocephalic and atraumatic Pupils are equal, round, and reactive to light. Extraocular eye muscles are intact, and sclera are anicteric. Ears - Normal TM. Nose - moist nasal mucosa without discharge. Mouth - moist buccal mucosa. Oropharynx is mildly and there is no tonsillar exudate or edema noted. Neck: Supple; no JVD or nuchal rigidity. Moderate left-sided anterior cervical lymphadenopathy. Heart: Regular rate and rhythm. There is a normal S1 and S2 with no murmurs, clicks, or gallops appreciated. Lungs: Clear to auscultation bilaterally with no wheezes, rales, or rhonchi. Abdomen: Soft, completely nontender, nondistended, with good bowel sounds. There are no palpable pulsatile masses or hepatosplenomegaly. There is no guarding, rigidity, or rebound noted. Extremities: No evidence of cyanosis, clubbing, or edema. There are easily palpable peripheral pulses. Skin: warm and dry with good turgor and no rashes. Medical Decision & Procedures Medications Administered Medications (Trade) Dose Ordered Sig/Primitivo Route Start Time Stop Time Status Last Admin Dose Admin Ketorolac Tromethamine (Toradol Inj) 60 mg NOW STAT IM 12/22/16 03:47 12/22/16 03:48 DC 12/22/16 03:59 60 MG Procedure Ordered Toradol Inj 60 mg IM. ED Course 0341: Past medical records reviewed. The patient was evaluated in room B9. A complete history and physical exam was performed. The patient had a negative rapid strep test. 0347: Toradol Inj 60 mg IM. 0401: Upon reevaluation, I discussed findings and results with her. I have provided her with an antibiotic prescription for penicillin because of her history of strep pharyngitis. I suggested that she wait to start this antibiotic to see if the symptoms worsen over the next 48 hours. She verbalized agreement of the treatment plan. She was discharged home. Medical Decision The patient is a 26 year old female who presents to the ED with sore throat. Differential diagnosis includes mono, strep pharyngitis, URI, Ferny angina. The patient had minimal left anterior cervical lymphadenopathy with some mild tonsillar edema. There is no obvious exudate. Rapid strep testing was negative. Patient had no obvious signs of Ferny Angina. The patient will start taking penicillin in the next 48 hours for sore throat worsens. I've encouraged her to keep herself well-hydrated and use NSAIDs for pain. Medication Reconcilliation Current Medication List: was personally reviewed by me Blood Pressure Screening Patient's blood pressure: Normal blood pressure Impression Primary Impression: Sore throat Scribe Attestation The scribe's documentation has been prepared under my direction and personally reviewed by me in its entirety. I confirm that the note above accurately reflects all work, treatment, procedures, and medical decision making performed by me. Departure Information Dispostion Home / Self-Care Prescriptions No Active Prescriptions or Reported Meds Referrals Ramu Tierney M.D. (PCP) Forms HOME CARE DOCUMENTATION FORM, IMPORTANT VISIT INFORMATION, WORK / SCHOOL INSTRUCTIONS Patient Instructions My [facility], Sore Throat, Sore Throat - [facility], Sore Throats Self Care Additional Instructions Rest. Take plenty of clear liquids Motrin - 800mg every 6 -8 hours with food for pain Start antibiotic in next 48 hours if sore throat worsens
[2016-12-22] MEDS ORDERED: KETOROLAC TROMETHAMINE 30 MG/ML VIAL ONE (04:34)
[2016-12-22] MEDS ORDERED: KETOROLAC TROMETHAMINE 60 MG/2 ML VIAL ONE (04:35)
== END 2016-12-22 04:18 | disposition home or self-care (01) ==
LOC: C.EDB 03:32
DX: R07.0 Pain in throat (principal); R68.83 Chills (without fever)

== ENCOUNTER → 2017-01-24 | Outpatient (CLI) | payer OTHER ==
[2017-01-24 17:03] LABS: HEMATOCRIT 35.4 % (37-47); MEAN CORPUSCULAR HGB CONC 31.6 g/dl (32-36); MEAN PLATELET VOLUME 9.9 fL (7.4-10.4); PLATELET COUNT 241 K/uL (130-400); RED BLOOD COUNT 4.48 M/uL (4.2-5.4); WHITE BLOOD COUNT 6.68 K/uL (4.8-10.8)
[2017-01-24 17:33] LABS: ALT/SGPT 18 U/L (12-78); BLOOD UREA NITROGEN 11 mg/dl (7-18); BUN/CREATININE RATIO 17.5 (10-20); CALCIUM 8.5 mg/dl (8.5-10.1); CARBON DIOXIDE 28 mmol/L (21-32); CHLORIDE 106 mmol/L (98-107); CHOLESTEROL 186 mg/dl (0-200); CREATININE 0.63 mg/dl (0.60-1.20); GLUCOSE 79 mg/dl (70-99); POTASSIUM 4.2 mmol/L (3.5-5.1); SODIUM 139 mmol/L (136-145)
[2017-01-24 17:44] LABS: ALB/GLOB RATIO 1.1 (0.9-2); ALKALINE PHOSPHATASE 63 U/L (45-117); AST/SGOT 13 U/L (15-37); HDL CHOLESTEROL 63 mg/dl; LDL CHOLESTEROL CALCULATED 108 mg/dl; TRIGLYCERIDES 74 mg/dl (0-150); VERY LOW DENSITY LIPOPROT CALC 15 mg/dl
== END | disposition home or self-care (01) ==
LOC: C.LAB1850 15:42
PROVIDERS: ATTEND Internal Medicine
DX: O99.019 Anemia complicating pregnancy, unspecified trimester (principal); R53.83 Other fatigue; Z3A.00 Weeks of gestation of pregnancy not specified